=== PATIENT | male | born 1935 | race Caucasian/White ===

== ENCOUNTER 2019-06-29 08:18 | Day surgery (SDC) | payer OTHER ==
[2019-06-27 16:11] VITALS: BP 143/96
[2019-06-27 16:33] LABS: BASOPHILS % (AUTO) 0.1 % (0.0-5.0); LYMPHOCYTES % (AUTO) 1.9 % (21.0-51.0); MEAN CORPUSCULAR HEMOGLOBIN 24.3 pg (27.0-33.0); MEAN CORPUSCULAR HGB CONC 28.9 g/dL (32.0-36.0); MEAN CORPUSCULAR VOLUME 83.9 fL (79-99); MONOCYTES % (AUTO) 4.7 % (3.0-13.0); NEUTROPHILS % (AUTO) 92.6 % (40.0-77.0); PLATELET COUNT (AUTO) 314 K/uL (130-400); RED BLOOD CELL COUNT(AUTO) 4.53 MIL/uL (4.50-6.20); RED CELL DISTRIBUTION WIDTH 18.4 % (11.0-15.5)
[2019-06-27 16:51] LABS: CREATININE 1.2 mg/dL (0.5-1.5); POTASSIUM 5.3 mmol/L (3.5-5.1)
--- NOTE | 2019-06-27 17:40 | NUR ---
NOTE PT SHOWED ME HIS UPPER ARM DURING PREOP INTERVIEW. NOTED RED AREA TO INNER UPPER ARM, SKIN INTACT, DENIES PAIN, DENIES ITCHING TO SITE, STATES HE THINKS REDNESS IS DUE TO HIM PUTTING WARM COMPRESS TO THAT AREA FOR SOME TIME NOW, DENIES FEVERS, AFEBRILE AT PRESENT. ADVISED PT TO CALL DR. HUMMEL'S OFFICE IN AM AND NOTIFY HER OF HIS ARM. PT VERBALIZED UNDERSTANDING.
--- NOTE | 2019-06-27 18:08 | NUR ---
EKG, ABNORMAL LABS EKG RESULT, ABNORMAL LABS (WBC 13.0, H&H 11.0 & 38.0, POTASSIUM 5.3) REPORTED TO DR. MEJIA. I ALSO INFORMED DR. MEJIA EARLIER THAT PT IS TAKING PREDNISONE 40 MG QAM FOR HIS COPD. PER DR. MEJIA, PT MAY TAKE HIS PREDNISONE AM OF PROCEDURE WITH SIP OF WATER. NO FURTHER ORDERS GIVEN, MAY PROCEED WITH PLANNED PROCEDURE.
--- NOTE | 2019-06-28 17:00 | NUR ---
CALLED OFFICE AT 1700, PT STATED HAVING REDNESS TO UPPER ARM, UNCLEAR WHICH ARM, SPOKE TO GALLO, FAXED ABNORMAL LABS, WAITING OR ORDERS FROM DR. HUMMEL'S OFFICE.
[2019-06-29] VITALS (19 sets, daily range): BP systolic 113–151; BP diastolic 58–82
[~2019-06-29] VITALS: Ht 185.4 cm; Wt 72.8 kg
[~2019-06-29 08:18] MED LIST: ACET-66 PO; ACET1TAB12 PO; AMIO200T5 PO; FAMO-135 PO; FERS325 PO; GLYCOPYRROLATE 1 MG/5 ML SYRINGE ONE; LEVOFLOXACIN 500 MG/D5W 100 ML 100 ML IV PRN; MITOMYCIN 40 MG VIAL ONE; MV,C1TAB21 PO; PRED10TA3 PO; [UNRECOGNIZED DRUG - OTHER] PO; albuterol NEB; ipratropium NEB
[2019-06-29] MEDS ORDERED: LACTATED RINGERS 1000ML 1,000 ML IV ONE (08:47)
[2019-06-29] MEDS ORDERED: IPRATROPIUM/ALBUTEROL SULFATE 3 ML SOLUTION IH ONE (10:00)
[2019-06-29] MEDS ORDERED: MITOMYCIN 40 MG VIAL ONE (10:01)
[2019-06-29] MEDS ORDERED: FENTANYL CITRATE PF 50 MCG/1 ML 2ML VIAL ONE (10:12)
[2019-06-29] MEDS ORDERED: LIDOCAINE PF 2% 5ML ABBOJECT ONE (10:12)
[2019-06-29] MEDS ORDERED: PROPOFOL 10 MG/ML 20ML VIAL IV ONE (10:12)
[2019-06-29] MEDS ORDERED: EPHEDRINE SULFATE 50 MG/ML AMPULE ONE (10:41)
[2019-06-29] MEDS ORDERED: OPIUM/BELLADONNA ALKALOIDS 1 EACH SUPP.RECT RC ONE (11:41)
[2019-06-29] MEDS ORDERED: PHENAZOPYRIDINE HCL 200 MG TABLET ONE (13:02)
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
== END 2019-06-29 13:10 | disposition home or self-care (01) ==
LOC: DAH 08:18
PROVIDERS: ATTEND Urology
DX: C67.4 Malignant neoplasm of posterior wall of bladder (principal); N47.1 Phimosis; I48.91 Unspecified atrial fibrillation; K21.9 Gastro-esophageal reflux disease without esophagitis; J44.9 Chronic obstructive pulmonary disease, unspecified; Z87.891 Personal history of nicotine dependence; Z88.1 Allergy status to other antibiotic agents; Z88.8 Allergy status to other drugs, medicaments and biological substances; Z98.49 Cataract extraction status, unspecified eye; Z88.0 Allergy status to penicillin; Z98.890 Other specified postprocedural states; Z85.46 Personal history of malignant neoplasm of prostate; Z79.01 Long term (current) use of anticoagulants; Z79.899 Other long term (current) drug therapy; Z86.73 Personal history of transient ischemic attack (TIA), and cerebral infarction without residual deficits; Z82.5 Family history of asthma and other chronic lower respiratory diseases; Z92.3 Personal history of irradiation
CPT/HCPCS: 36415; 51720; 52234; 80048; 85025; 88305; 93005; 94640; A4215; A4221; A4222; A4223; A4354; A4663; A6260; J1956; J2001; J2704; J3010; J3490 ×2; J7030; J7120; J9280 ×2

== ENCOUNTER 2019-07-02 23:35 | Emergency (ER) | payer OTHER ==
[~2019-07-02 23:35] MED LIST changes: -GLYCOPYRROLATE 1 MG/5 ML SYRINGE ONE; -LEVOFLOXACIN 500 MG/D5W 100 ML 100 ML IV PRN; -MITOMYCIN 40 MG VIAL ONE
[2019-07-03 00:55] LABS: APPEARANCE,URINE Turbid (CLEAR); BILIRUBIN,URINE Small (NEGATIVE); COLOR,URINE Dark Yellow (YELLOW); GLUCOSE, URINE (UA) Negative (NEGATIVE); KETONES,URINE Negative (NEGATIVE); LEUKOCYTE ESTERASE ,URINE Small (NEGATIVE); NITRATE,URINE Positive (NEGATIVE); OCCULT BLOOD,URINE Large (NEGATIVE); PROTEIN,URINE 300 mg/dL (NEGATIVE)
[2019-07-03 01:08] LABS: RBC,URINE >100 /HPF (0-1)
[2019-07-03 01:09] LABS: BACTERIA,URINE Few /HPF (None Seen); MUCUS,URINE Few LPF (None Seen)
[2019-07-03 01:10] LABS: CALCIUM OXALATE CRYSTALS,UR Few /LPF (None Seen)
== END 2019-07-03 02:29 | disposition home or self-care (01) ==
LOC: EDH 23:35
DX: T83.091A Other mechanical complication of indwelling urethral catheter, initial encounter (principal); I48.91 Unspecified atrial fibrillation; Z87.891 Personal history of nicotine dependence; Z88.0 Allergy status to penicillin; Z88.1 Allergy status to other antibiotic agents; Z88.8 Allergy status to other drugs, medicaments and biological substances
CPT/HCPCS: 51702; 81001; 87088

== ENCOUNTER 2019-07-05 17:21 | Observation (INO) | payer OTHER ==
[~2019-07-05] VITALS: Ht 185.4 cm; Wt 75.3 kg
[2019-07-05 17:58] LABS: BASOPHILS % (AUTO) 0.1 % (0.0-5.0); EOSINOPHILS % (AUTO) 0.8 % (0.0-8.0); HEMATOCRIT 34.6 % (42-54); LYMPHOCYTES % (AUTO) 5.5 % (21.0-51.0); MEAN CORPUSCULAR HEMOGLOBIN 24.5 pg (27.0-33.0); MEAN CORPUSCULAR HGB CONC 29.8 g/dL (32.0-36.0); MEAN CORPUSCULAR VOLUME 82.4 fL (79-99); MONOCYTES % (AUTO) 8.7 % (3.0-13.0); NEUTROPHILS % (AUTO) 83.9 % (40.0-77.0); PLATELET COUNT (AUTO) 248 K/uL (130-400); WHITE BLOOD COUNT (AUTO) 8.3 K/uL (4.8-10.8)
[2019-07-05 18:08] LABS: CREATININE 1.2 mg/dL (0.5-1.5); POTASSIUM 3.8 mmol/L (3.5-5.1)
[2019-07-05 18:14] LABS: ALBUMIN 2.7 g/dL (3.5-5.0); BILIRUBIN,TOTAL 0.7 mg/dL (0.2-1.0); TOTAL PROTEIN, SERUM 5.9 g/dL (6.0-8.3)
[2019-07-05] MEDS ORDERED: HEPARIN SODIUM 5000UNIT/ML 1ML VIAL ONE (18:20)
[2019-07-05 18:28] LABS: INR 1.01 (0.85-1.15); PARTIAL THROMBOPLASTIN TIME 24.4 SEC (26.3-35.5); PROTHROMBIN TIME 10.6 SEC (9.6-11.6)
[2019-07-05] MEDS ORDERED: HYDRALAZINE HCL 20 MG/ML VIAL IV PRN (20:00)
[2019-07-05] MEDS ORDERED: HYDROCODONE/ACETAMINOPHEN 5/325 MG TAB PO PRN (20:00)
[2019-07-06] MEDS ORDERED: HEPARIN SODIUM 5000UNIT/ML 1ML VIAL SQ SCH (02:00)
[2019-07-06] MEDS ORDERED: HEPARIN SODIUM 5000UNIT/ML 1ML VIAL ONE (02:16)
[2019-07-06] MEDS ORDERED: IPRATROPIUM/ALBUTEROL SULFATE 3 ML SOLUTION IH ONE ×2 (09:20→14:23)
[2019-07-06] MEDS ORDERED: ONDANSETRON HCL 4 MG/2 ML VIAL IVP PRN (11:00)
[2019-07-06] MEDS ORDERED: DIPHENHYDRAMINE HCL 25 MG CAPSULE PO PRN (11:00)
[2019-07-06] MEDS ORDERED: HEPARIN 25000 UNITS/250 ML D5W 250 ML IV SCH (11:00)
[2019-07-06] MEDS ORDERED: ACETAMINOPHEN-CODEINE 300/30MG TAB PO PRN ×2 (11:00)
[2019-07-06] MEDS ORDERED: NITROGLYCERIN 0.4 MG SL TAB SL PRN (11:00)
[2019-07-06] MEDS ORDERED: LACTULOSE 20 GM/30 ML UDCUP PO PRN (11:00)
[2019-07-06] MEDS ORDERED: GUAIFENESIN-DM 200/20 MG 10 ML PO PRN (11:00)
[2019-07-06] MEDS ORDERED: ACETAMINOPHEN 325 MG TAB PO PRN (11:00)
[2019-07-06] MEDS ORDERED: HEPARIN 25000 UNITS/250 ML D5W 250 ML IV ONE (11:09)
--- NOTE | 2019-07-06 11:17 | NUR ---
INITIAL Patient lives alone but reports that his sister in law has been staying at his home for a few weeks. No home services. DME: BPM, wheelchair, walker with seat, O2 portable concentrator, shower chair. Patient states he is able to complete ADL's independently but at times needs help. Patient states he drives. PCP is Dr. Byron Martínez. Pharmacy is [facility] located in [place]. DCP is home. Addendum: 07/06/19 at 1119 by FOZIA JOHNSON SS Amended: Links added.
[2019-07-06 11:27] LABS: BASOPHILS % (AUTO) 0.4 % (0.0-5.0); EOSINOPHILS % (AUTO) 1.1 % (0.0-8.0); HEMATOCRIT 37.9 % (42-54); LYMPHOCYTES % (AUTO) 5.7 % (21.0-51.0); MEAN CORPUSCULAR HEMOGLOBIN 24.7 pg (27.0-33.0); MEAN CORPUSCULAR HGB CONC 29.8 g/dL (32.0-36.0); MEAN CORPUSCULAR VOLUME 82.8 fL (79-99); MONOCYTES % (AUTO) 8.4 % (3.0-13.0); NEUTROPHILS % (AUTO) 83.7 % (40.0-77.0); PLATELET COUNT (AUTO) 287 K/uL (130-400); RED BLOOD CELL COUNT(AUTO) 4.58 MIL/uL (4.50-6.20)
[2019-07-06 11:36] LABS: CREATININE 1.1 mg/dL (0.5-1.5); MAGNESIUM 2.2 mg/dL (1.80-2.40); PHOSPHORUS 2.6 mg/dL (2.5-4.9); POTASSIUM 3.7 mmol/L (3.5-5.1)
[2019-07-06 11:41] LABS: INR 0.96 (0.85-1.15); PARTIAL THROMBOPLASTIN TIME 25.4 SEC (26.3-35.5); PROTHROMBIN TIME 10.1 SEC (9.6-11.6)
[2019-07-06] MEDS ORDERED: IPRATROPIUM/ALBUTEROL SULFATE 3 ML SOLUTION IH SCH (12:00)
[2019-07-06] MEDS ORDERED: NEOMY SULF/BACITRA/POLYMYXIN B 1 EACH PACKET TP SCH (14:00)
--- NOTE | 2019-07-06 15:35 | NUR ---
Ruben paged. states I was already aware i already gave orders. no new orders received.
[2019-07-06 16:00] VITALS: BP 117/63
[2019-07-06] MEDS: IPRATROPIUM/ALBUTEROL SULFATE 3 ML SOLUTION IH SCH ×2 (18:53→21:11)
[2019-07-06 18:54] LABS: INR 1.02 (0.85-1.15); PARTIAL THROMBOPLASTIN TIME 73.5 SEC (26.3-35.5); PROTHROMBIN TIME 10.7 SEC (9.6-11.6)
[2019-07-06 20:48] VITALS: BP 107/55
[2019-07-06] MEDS: FAMOTIDINE 20MG TAB 20 MG TAB PO SCH (21:44)
[2019-07-07] VITALS (7 sets, daily range): BP systolic 98–162; BP diastolic 51–98
[2019-07-07 00:55] LABS: INR 1.02 (0.85-1.15); PROTHROMBIN TIME 10.7 SEC (9.6-11.6)
[2019-07-07 01:06] LABS: PARTIAL THROMBOPLASTIN TIME 89.6 SEC (26.3-35.5)
[2019-07-07] MEDS: IPRATROPIUM/ALBUTEROL SULFATE 3 ML SOLUTION IH SCH ×4 (01:11→13:36)
[2019-07-07 05:54] LABS: APPEARANCE,URINE TURBID (CLEAR); BILIRUBIN,URINE NEGATIVE (NEGATIVE); COLOR,URINE RED (YELLOW); GLUCOSE, URINE (UA) NEGATIVE (NEGATIVE); KETONES,URINE 5 mg/dL (NEGATIVE); LEUKOCYTE ESTERASE ,URINE SMALL (NEGATIVE); NITRATE,URINE NEGATIVE (NEGATIVE); OCCULT BLOOD,URINE LARGE (NEGATIVE); PH,URINE 6.5 (5.0-8.0); PROTEIN,URINE >=300 mg/dL (NEGATIVE); UROBILINOGEN,URINE 0.2 mg/dL (0.2-1.0)
[2019-07-07 06:21] LABS: BACTERIA,URINE Many /HPF (None Seen)
[2019-07-07 06:46] LABS: INR 1.02 (0.85-1.15); PARTIAL THROMBOPLASTIN TIME 81.9 SEC (26.3-35.5); PROTHROMBIN TIME 10.7 SEC (9.6-11.6)
--- NOTE | 2019-07-07 08:20 | NUR ---
PATIENT UPDATE Pt noted with blood in the urine early am, sample sent to lab and showed large occult blood in the urine. Called Katalina Mcnamara NP and was made aware of the latest findings with order to stop the Heparin drip and that he will come and see the pt this am. Pt slept well overnight in between trying to use the urinal, pt noted to have small frequent urination, denies dysuria. Heparin drip stopped, will continue to monitor.
[2019-07-07] MEDS: AMIODARONE HCL 200 MG TABLET PO SCH (08:52)
[2019-07-07] MEDS: PANTOPRAZOLE SODIUM 40 MG TABLET.DR PO SCH (08:52)
[2019-07-07] MEDS: FERROUS SULFATE 325 MG TABLET.DR PO SCH (08:53)
[2019-07-07] MEDS: MULTIVITAMIN TABLET PO SCH (08:53)
[2019-07-07] MEDS: FAMOTIDINE 20MG TAB 20 MG TAB PO SCH ×2 (08:53→21:30)
--- NOTE | 2019-07-07 08:55 | NUR ---
PER PT,HE HAS NOTICED HEMATURIA SINCE 12 MIDNIGHT, NOTIFIED [employer] CAR NURSE. AND THAT HE FEELS THAT HE HAS BEEN HAVING DIFFICULTY URINATING WITH BLOOD SINCE THEN.
[2019-07-07] MEDS ORDERED: PREDNISONE 20 MG TABLET PO SCH (09:00)
--- NOTE | 2019-07-07 09:55 | NUR ---
DESKTOP ADMINISTRATOR HUMBERTO REMIDED PT CONTINUES TO HAVE HEMATURIA STATES CONSULT DR. ALEXANDRE RE; FAILED MED MGT. AND MAY CONSULT UROLOGY FOR HEMATURIA.
--- NOTE | 2019-07-07 10:00 | NUR ---
AYLIN PAUL AWARE OF SMALL LEFT PNEUMOTHORAX STATES I WILL CALL DR. KIRAN.
--- NOTE | 2019-07-07 11:20 | NUR ---
PAGED DR. ALEXANDRE AND DR. HELMS: CALLED BACK ORDERS ENTERED. RE; HEMATURIA AND FAILED MEDICAL MGT OF LEFT LOWER EXTREMITY DVT.
--- NOTE | 2019-07-07 14:20 | NUR ---
Dr. Allen aware of bp in start ivf 500ML BOLUS OF LR X1 THEN LR AT 50ML X24HRS.
[2019-07-07] MEDS ORDERED: LACTATED RINGERS 1000ML IV SCH (14:45)
--- NOTE | 2019-07-07 15:08 | NUR ---
Dr. Miranda aware of Negative Venous doppler of LLE orders entered.
[2019-07-07] MEDS ORDERED: OXYMETAZOLINE HCL SPRAY 15 ML BOTTLE EN PRN (16:45)
[2019-07-07] MEDS: LACTATED RINGERS 1000ML 1,000 ML IV SCH (17:26)
[2019-07-07] MEDS ORDERED: IPRATROPIUM/ALBUTEROL SULFATE 3 ML SOLUTION IH PRN (20:00)
[2019-07-07 21:20] LABS: HEMATOCRIT 32.6 % (42-54); MEAN CORPUSCULAR HEMOGLOBIN 24.9 pg (27.0-33.0); MEAN CORPUSCULAR HGB CONC 30.4 g/dL (32.0-36.0); MEAN CORPUSCULAR VOLUME 81.9 fL (79-99); PLATELET COUNT (AUTO) 274 K/uL (130-400); RED BLOOD CELL COUNT(AUTO) 3.98 MIL/uL (4.50-6.20); RED CELL DISTRIBUTION WIDTH 19.2 % (11.0-15.5); WHITE BLOOD COUNT (AUTO) 10.2 K/uL (4.8-10.8)
[2019-07-08 04:29] VITALS: BP 111/69
[2019-07-08 05:48] LABS: HEMATOCRIT 29.6 % (42-54); MEAN CORPUSCULAR HEMOGLOBIN 25.1 pg (27.0-33.0); MEAN CORPUSCULAR HGB CONC 30.7 g/dL (32.0-36.0); MEAN CORPUSCULAR VOLUME 81.8 fL (79-99); PLATELET COUNT (AUTO) 252 K/uL (130-400); RED BLOOD CELL COUNT(AUTO) 3.62 MIL/uL (4.50-6.20); RED CELL DISTRIBUTION WIDTH 19.1 % (11.0-15.5); WHITE BLOOD COUNT (AUTO) 9.9 K/uL (4.8-10.8)
[2019-07-08 06:03] LABS: PROTHROMBIN TIME 10.5 SEC (9.6-11.6)
[2019-07-08 06:22] LABS: CREATININE 1.1 mg/dL (0.5-1.5); MAGNESIUM 2.2 mg/dL (1.80-2.40); PHOSPHORUS 2.6 mg/dL (2.5-4.9); POTASSIUM 4.2 mmol/L (3.5-5.1)
--- NOTE | 2019-07-08 07:00 | NUR ---
PATIENT UPDATE Pt continues to have this small frequent urination, some difficulty to get the urine out as per pt. Bladder scanned this am, noted 390 cc's , pt made aware of the standing order of Dr. Mcclendon about the need for albarado catheter insertion for urine greater than 350 cc's. to refused to have the albarado catheter inserted, stated it's not normal and that it's very uncomfortable. Voided 100 cc's after the bladder scan. No hypotensive episodes the whole shift, continues with the slow hydration with LR at 50 cc's per hour. No shortness of breath, breath sounds clear, takes off the O2 on and off during the night.
[2019-07-08 08:00] VITALS: BP 143/73
[2019-07-08] MEDS ORDERED: PREDNISONE 10 MG TABLET PO SCH (09:00)
[2019-07-08] MEDS: LACTATED RINGERS 1000ML 1,000 ML IV SCH (10:45)
[2019-07-08] MEDS: AMIODARONE HCL 200 MG TABLET PO SCH (10:50)
[2019-07-08] MEDS: FERROUS SULFATE 325 MG TABLET.DR PO SCH (10:50)
[2019-07-08] MEDS: FAMOTIDINE 20MG TAB 20 MG TAB PO SCH (10:50)
[2019-07-08] MEDS: PANTOPRAZOLE SODIUM 40 MG TABLET.DR PO SCH (10:51)
[2019-07-08] MEDS: MULTIVITAMIN TABLET PO SCH (10:51)
[2019-07-08 11:34] VITALS: BP 111/65
[2019-07-08 16:00] VITALS: BP 120/59
--- NOTE | 2019-07-08 18:02 | NUR ---
NOTE DISCHARGE INSTRUCTIONS GIVEN TO PATIENT AT THIS TIME. HE ENDED UP HAVING CT SCAN CHEST TO R/O PNEUMOTHORAX AND WAS NEGATIVE FOR PNEUMOTHORAX. DR KIRAN DISCHARGED HIM AT THIS TIME. ALSO DR HELMS CAME IN AND SAID HE WAS OKAY TO DC FROM UROLOGY STANDPOINT. FOLLOW UP WITH PCP AND ESTEPHANIE IN 2-3 DAYS. REFER TO DC SUMMARY FOR DETAILS.
== END 2019-07-08 19:17 | disposition home or self-care (01) ==
LOC: EDH 17:21 → INTOOBSV 18:09 → OBSVTOIN 18:09 → EDHIP 18:09 → 3AH 07-06 15:01
PROVIDERS: ADMIT Internal Medicine Pulmonary Disease; ATTEND Internal Medicine Pulmonary Disease
DX: I82.432 Acute embolism and thrombosis of left popliteal vein (principal); J96.21 Acute and chronic respiratory failure with hypoxia; E44.0 Moderate protein-calorie malnutrition; J90 Pleural effusion, not elsewhere classified; Y92.89 Other specified places as the place of occurrence of the external cause; C67.9 Malignant neoplasm of bladder, unspecified; J44.9 Chronic obstructive pulmonary disease, unspecified; C61 Malignant neoplasm of prostate; I48.0 Paroxysmal atrial fibrillation; S91.302A Unspecified open wound, left foot, initial encounter; R31.0 Gross hematuria; Z99.81 Dependence on supplemental oxygen; Z79.01 Long term (current) use of anticoagulants; Z87.891 Personal history of nicotine dependence; Z68.21 Body mass index [BMI] 21.0-21.9, adult; Z88.0 Allergy status to penicillin; Z88.8 Allergy status to other drugs, medicaments and biological substances; X58.XXXA Exposure to other specified factors, initial encounter; Y93.89 Activity, other specified
CPT/HCPCS: 36415 ×4; 51702; 71045 ×4; 71250; 80048 ×2; 80053; 81001 ×2; 83735 ×2; 84100 ×2; 85025 ×2; 85027 ×3; 85610 ×6; 85730 ×6; 87088; 93005; 93971; 94640 ×8; 94664; 99285; A4600; G0378 ×26; J1644 ×3; J7120; J7512

== ENCOUNTER 2020-10-24 06:00 | Day surgery (SDC) | payer OTHER ==
[2020-10-22 13:15] LABS: BASOPHILS % (AUTO) 0.4 % (0.0-5.0); EOSINOPHILS % (AUTO) 0.5 % (0.0-8.0); HEMATOCRIT 47.6 % (42-54); LYMPHOCYTES % (AUTO) 5.7 % (21.0-51.0); MEAN CORPUSCULAR HEMOGLOBIN 31.5 pg (27.0-33.0); MEAN CORPUSCULAR HGB CONC 32.1 g/dL (32.0-36.0); MEAN CORPUSCULAR VOLUME 97.9 fL (79-99); MONOCYTES % (AUTO) 4.1 % (3.0-13.0); NEUTROPHILS % (AUTO) 88.8 % (40.0-77.0); PLATELET COUNT (AUTO) 205 K/uL (130-400); RED BLOOD CELL COUNT(AUTO) 4.86 MIL/uL (4.50-6.20); RED CELL DISTRIBUTION WIDTH 13.8 % (11.0-15.5); WHITE BLOOD COUNT (AUTO) 11.8 K/uL (4.8-10.8)
[2020-10-22 13:38] LABS: CREATININE 1.2 mg/dL (0.5-1.5); POTASSIUM 5.3 mmol/L (3.5-5.1)
[2020-10-23 15:32] VITALS: BP 140/68
[~2020-10-24] VITALS: Ht 185.4 cm; Wt 74.3 kg
[2020-10-24] VITALS (18 sets, daily range): BP systolic 114–163; BP diastolic 60–92
[~2020-10-24 06:00] MED LIST changes: -AMIO200T5 PO; +AMIO200T6 PO; -FAMO-135 PO; +FAMO-290 PO
[2020-10-24] MEDS ORDERED: LACTATED RINGERS 1000ML 1,000 ML IV ONE (06:35)
[2020-10-24] MEDS ORDERED: LEVOFLOXACIN 500 MG/D5W 100 ML 100 ML ONE (06:36)
[2020-10-24] MEDS ORDERED: ATOR10 PO (07:21)
[2020-10-24] MEDS ORDERED: TIOT4MIS5 IH (07:21)
[2020-10-24] MEDS ORDERED: BUDE10.2 IH (07:21)
[2020-10-24] MEDS ORDERED: VIT1CAPS47 PO (07:21)
[2020-10-24] MEDS ORDERED: LEVO500T89 PO (07:21)
[2020-10-24] MEDS ORDERED: ASCO500C18 PO (07:21)
[2020-10-24] MEDS ORDERED: MONT10TA32 PO (07:21)
[2020-10-24] MEDS ORDERED: MITOMYCIN 40 MG SYR.W..INJ IV SCH (08:00)
[2020-10-24] MEDS ORDERED: LEVOFLOXACIN 500 MG/D5W 100 ML 100 ML IV SCH (08:00)
[2020-10-24] MEDS ORDERED: LIDOCAINE HCL MPF 1% 5ML VIAL ONE (08:31)
[2020-10-24] MEDS ORDERED: SUCCINYLCHOLINE 200MG/10ML SYR ONE (08:31)
[2020-10-24] MEDS ORDERED: PROPOFOL 10 MG/ML 20ML VIAL IV ONE (08:31)
[2020-10-24] MEDS ORDERED: MIDAZOLAM HCL 1 MG/ML 2ML VIAL ONE (08:31)
[2020-10-24] MEDS ORDERED: FENTANYL CITRATE PF 50 MCG/1 ML 2ML VIAL ONE (08:32)
[2020-10-24] MEDS ORDERED: ROCURONIUM 10MG/1ML SYR 10 MG/ML ML ONE (08:32)
[2020-10-24] MEDS ORDERED: OPIUM/BELLADONNA ALKALOIDS 1 EACH SUPP.RECT RC ONE (09:09)
[2020-10-24] MEDS ORDERED: NEOSTIGMINE 5MG/5ML SYR IV ONE (09:15)
[2020-10-24] MEDS ORDERED: GLYCOPYRROLATE 1 MG/5 ML SYRINGE ONE (09:15)
[2020-10-24] MEDS ORDERED: ALBUTEROL INHALER 90MCG/INH IH ONE (09:19)
[2020-10-24] MEDS ORDERED: PHENAZOPYRIDINE HCL 200 MG TABLET ONE (11:02)
== END 2020-10-24 11:35 | disposition home or self-care (01) ==
LOC: DAH 06:00
PROVIDERS: ATTEND Urology
DX: C67.4 Malignant neoplasm of posterior wall of bladder (principal); Z20.822 Contact with and (suspected) exposure to COVID-19; N32.3 Diverticulum of bladder; N32.89 Other specified disorders of bladder; I48.91 Unspecified atrial fibrillation; J44.9 Chronic obstructive pulmonary disease, unspecified; Z79.899 Other long term (current) drug therapy; Z87.891 Personal history of nicotine dependence
CPT/HCPCS: 36415; 52235; 52287; 80048; 85025; 87635; 93005; A4215 ×2; A4216; A4221 ×2; A4222 ×2; A4223 ×4; A4335; A4344; A4354; A4358 ×2; A4510; A4554; A4600; A4606; A4663; C1758; C9803; J0330; J1956; J2250; J2704; J2710; J3010; J3490 ×2; J7120 ×2; J9280